=== PATIENT | female | born 1975 | race Caucasian/White ===

== ENCOUNTER 2017-11-07 15:08 | Emergency (ER) | payer OTHER ==
[2017-11-07 15:19] VITALS: RESP 18; TEMP 98.1
[2017-11-07] MEDS ORDERED: HYDROmorphONE/DILAUDID 1 MG/ML INJ IVP ONE ×2 (15:19→16:31)
--- NOTE | 2017-11-07 15:19 | EDPHY ---
H & P Time Seen by Provider: 11/07/17 15:12 HPI/ROS: CHIEF COMPLAINT: Left knee injury HISTORY OF PRESENT ILLNESS: Patient was out pine skiing and fell on [place] [employer] [place] the [place]. This happened around 1:00 p.m. And [place] then by [place] to us. She said she is"not a very good skier "and fell over while she was going at a slow to moderate speed and slid impacting her knee anteriorly just below the patella on a tree. She did not dislocate her knee and did not sustain other injuries. She was wearing a helmet did not hit her head or lose consciousness. No neck or back pain. REVIEW OF SYSTEMS: Eye: no change in vision ENT: No ENT injuries. Cardiac: No chest pain Pulmonary: Not short of breath Abdomen: No vomiting or abdominal pain Musculoskeletal: no back pain or neck pain Skin: Left joel abrasion. Neuro: no headache, no weakness or numbness in the left foot or leg Constitutional: no fever : no urinary symptoms A comprehensive 10 point review of systems is otherwise negative aside from elements mentioned in the history of present illness. PAST MEDICAL HISTORY: Negative, tetanus up-to-date Social history: Nonsmoker no alcohol General Appearance: Alert and conversant, cooperative. Eyes: No scleral icterus. ENT, Mouth: Normal mucous membranes. Respiratory: Normal respiratory effort, breath sounds equal, lungs are clear to auscultation. Cardiovascular: Regular rate and rhythm. Gastrointestinal: Abdomen is soft and non tender. Neurological: Alert, face symmetric, normal motor and sensory in extremities. Skin: 1 cm anterior left mid joel abrasion. Musculoskeletal: Tenderness around the left knee especially inferior to the patella anteriorly. Normal dorsalis pedis and posterior tibial pulse in the left foot. Normal range of motion of the left hip with no pelvic instability. Left ankle and foot are normal. Left femur is normal. No cervical thoracic or lumbar spine tenderness to palpation. Psychiatric: Not agitated. Emergency Department course/MDM: Patient downgraded to no level trauma activation at 3:15 p.m. By history and physical exam I think dislocation of her knee is unlikely. Dilaudid 0.5 mg IV, wound care, x-ray of the left knee and tib-fib. 1541: Multiple part tibial plateau fracture on x-ray reviewed with the patient. Croissant at noon, ice chips at this time. Now NPO. 1555: Discussed with Nahun who reviewed the imaging and requests ACL brace at 10 degrees, CT, office follow-up next week. Discussed recommendation with patient was in agreement. Warned the patient that although non operative treatment was recommended initially by Dr. Garnica, it is possible the next week the recommendations could include operative intervention. Constitutional: Initial Vital Signs Temperature (C) 36.7 C 11/07/17 15:08 Heart Rate 49 L 11/07/17 15:08 Respiratory Rate 18 11/07/17 15:08 Blood Pressure 101/56 L 11/07/17 15:08 O2 Sat (%) 99 11/07/17 15:08 O2 Delivery Mode Room Air Allergies/Adverse Reactions: No Known Allergies Allergy (Unverified 11/07/17 15:17) Home Medications: Medication Instructions Recorded Ondansetron Odt [Zofran Odt] 4 mg PO Q4PRN #15 tab 11/07/17 oxyCODONE/APAP 5/325 [Percocet] 1 - 2 tab PO Q4-6PRN PRN #19 tab 11/07/17 Medical Decision Making - Diagnostics Imaging Results: Imaging Impressions Knee X-Ray 11/07/17 15:19 Impression: 1. Complex nondisplaced fractures of the proximal tibia and tibial plateau as detailed above. 2. Large effusion suprapatellar bursa with fluid fluid level. Tibia/Fibula X-Ray 11/07/17 15:19 Impression: 1. Complex nondisplaced fractures of the proximal tibia and tibial plateau as detailed above. 2. Large effusion suprapatellar bursa with fluid fluid level. Extremity CT 11/07/17 16:00 Impression: Comminuted fracture of the medial and lateral tibial plateau, as above. Lipohemarthrosis. Results called and discussed with Dr. Ramez Pagan on 11/07/2017, 16:31. Imaging: I viewed and interpreted images myself Differential Diagnosis: Differential considered including but not limited to patellar fracture, tibial plateau fracture, knee dislocation, knee contusion, ACL injury Consult/Admit Bed Type: [place] [id number] - Data Points Medications Given: Discontinued Medications Hydromorphone HCl (Dilaudid) 0.5 mg IVP EDNOW ONE Stop: 11/07/17 15:20 Last Admin: 11/07/17 15:35 Dose: 0.5 mg Hydromorphone HCl (Dilaudid) 1 mg IVP EDNOW ONE Stop: 11/07/17 16:32 Last Admin: 11/07/17 16:32 Dose: 1 mg Departure - Departure Disposition: Home, Routine, Self-Care Clinical Impression: Closed fracture of left tibial plateau Qualifiers: Encounter type: initial encounter Qualified Code(s): S82.142A - Displaced bicondylar fracture of left tibia, initial encounter for closed fracture Condition: Good Instructions: Crutch Instructions (ED) Additional Instructions: Nonweightbearing on left leg. Wear brace at all times except in the shower. Follow-up in the office next week with Dr. Garnica as instructed. Referrals: Ramiro Garnica MD [Medical Doctor] - 11/13/17 Prescriptions: Ondansetron Odt [Zofran Odt] 4 mg PO Q4PRN #15 tab oxyCODONE/APAP 5/325 [Percocet] 1 - 2 tab PO Q4-6PRN PRN #19 tab PRN Reason: Pain
[2017-11-07] MEDS ORDERED: HYDROmorphONE/DILAUDID 1 MG/ML INJ ONE (16:29)
[2017-11-07 17:05] VITALS: BP 93/50; PULSE 45; O2SAT 95
== END 2017-11-07 17:55 | disposition home or self-care (01) ==
LOC: EDUNIT#
DX: S82.142A Displaced bicondylar fracture of left tibia, initial encounter for closed fracture (principal); V00.321A Fall from snow-skis, initial encounter; Y99.8 Other external cause status; Y93.23 Activity, snow (alpine) (downhill) skiing, snowboarding, sledding, tobogganing and snow tubing
CPT/HCPCS: 96374; J1170

== ENCOUNTER → 2017-11-14 | Outpatient (CLI) | payer OTHER | LOC: BMCIMAGING 08:46 | PROVIDERS: ATTEND Physician Assistant | DX: M79.662 Pain in left lower leg (principal); M79.89 Other specified soft tissue disorders ==